=== PATIENT | female | born 1940 | race Two or more races ===

== ENCOUNTER 2025-02-07 14:09 | Inpatient (IN) | payer MEDICARE, BC, OTHER ==
[~2025-02-07] VITALS: Ht 160 cm; Wt 54.4 kg
[2025-02-07] MEDS: CEFEPIME 1 GM in IV D5W 50 ML IV ONE (14:15)
[2025-02-07 14:57] LABS: BASOPHILS % (AUTO) 0.2 % (0.0-2.0); EOSINOPHILS # (AUTO) 0.1 K/uL (0.0-0.7); EOSINOPHILS % (AUTO) 0.6 % (0.0-6.0); HEMATOCRIT 31 % (33-45); HEMOGLOBIN 10.5 g/dL (11.5-14.8); LYMPHOCYTES # (AUTO) 0.8 K/uL (0.8-4.8); LYMPHOCYTES % (AUTO) 8.6 % (20.0-44.0); MEAN CORPUSCULAR HEMOGLOBIN 30 PG (26.0-33.0); MEAN CORPUSCULAR HGB CONC 34 g/dl (31.0-36.0); MEAN CORPUSCULAR VOLUME 89 fL (82-100); MONOCYTES # (AUTO) 1.1 K/uL (0.1-1.30); MONOCYTES % (AUTO) 11.2 % (2.0-12.0); NEUTROPHILS # (AUTO) 7.7 K/uL (1.8-8.9); NEUTROPHILS % (AUTO) 79.4 % (43.0-81.0); PLATELET COUNT (AUTO) 200 K/uL (150-450); RED BLOOD CELL COUNT(AUTO) 3.47 MIL/uL (4.0-5.2); RED CELL DISTRIBUTION WIDTH 13.6 % (11.5-15.0); WHITE BLOOD COUNT (AUTO) 9.7 K/uL (4.3-11.0)
[2025-02-07 15:05] LABS: CALCIUM, SERUM 9.1 mg/dL (8.5-10.1); CARBON DIOXIDE 29 mmol/L (21-32); CHLORIDE 102 mmol/L (98-107); CREATININE 1.1 mg/dL (0.6-1.3); GLUCOSE 170 mg/dL (74-106); POTASSIUM 3.8 mmol/L (3.5-5.1); SERUM AMMONIA 4 umol/L (11-32); SODIUM SERUM 140 mmol/L (136-145); UREA NITROGEN, BLOOD 31 mg/dL (7-18)
[2025-02-07 15:12] LABS: ALANINE AMINOTRANSFERASE 13 U/L (12-78); ALKALINE PHOSPHATASE 73 U/L (46-116); ASPARTATE AMINOTRANSFERASE 12 U/L (15-37); BILIRUBIN,DIRECT 0.1 mg/dL (0.0-0.2); BILIRUBIN,TOTAL 0.4 mg/dL (0.2-1.0); TOTAL PROTEIN, SERUM 6.9 g/dL (6.4-8.2)
[2025-02-07 15:14] LABS: ACETAMINOPHEN <10 ug/ml (10-30); ALCOHOL, BLOOD < 3 mg/dL (0-10); SALICYLATE < 2.8 mg/dL (2.8-20.0)
[2025-02-07] MEDS ORDERED: ACET325T53 PO (15:20)
[2025-02-07] MEDS ORDERED: CARV6.252 PO (15:20)
[2025-02-07] MEDS ORDERED: MAG30ORA PO (15:20)
[2025-02-07] MEDS ORDERED: OLAN5TAB3 PO (15:20)
[2025-02-07] MEDS ORDERED: MAGN400O6 PO (15:20)
[2025-02-07] MEDS ORDERED: CYANOCOBALAMIN PO (15:20)
[2025-02-07] MEDS ORDERED: MULT-754 PO (15:20)
[2025-02-07] MEDS ORDERED: ASPI-1420 PO (15:20)
[2025-02-07] MEDS ORDERED: BISA10SU11 RC (15:20)
[2025-02-07] MEDS ORDERED: TEMA15CA PO (15:20)
[2025-02-07] MEDS ORDERED: ROSU20TA32 PO (15:20)
[2025-02-07] MEDS ORDERED: NA P133E RC (15:20)
[2025-02-07] MEDS ORDERED: LORA-258 PO (15:20)
[2025-02-07] MEDS ORDERED: DOCU250C14 PO (15:20)
[2025-02-07] MEDS ORDERED: TOBR5DRO36 EACHEYE (15:20)
[2025-02-07] MEDS ORDERED: ESCI10TA PO (15:20)
[2025-02-07] MEDS ORDERED: MEMA5TAB PO (15:20)
[2025-02-07] MEDS ORDERED: LEVO25TA9 PO (15:20)
[2025-02-07] MEDS ORDERED: FLUORESCEIN SODIUM OPHTH 1 EA STRIP ONE (15:40)
[2025-02-07] MEDS ORDERED: TETRAcaine 5 ML BOTTLE ONE (15:40)
[2025-02-07] MEDS: VANCOMYCIN 1 GM in IV D5W 250 ML IV ONE (16:00)
[2025-02-07] MEDS: TETRAcaine 5 ML BOTTLE EACHEYE ONE (16:12)
[2025-02-07] MEDS: FLUORESCEIN SODIUM OPHTH 1 EA STRIP OP ONE (16:12)
[2025-02-07 17:03] LABS: APPEARANCE,URINE CLEAR (CLEAR); BILIRUBIN,URINE NEGATIVE (NEGATIVE); BLOOD, URINE 2+ Ery/uL (NEGATIVE); COLOR,URINE YELLOW (YELLOW); KETONES,URINE 1+ mg/dL (NEGATIVE); LEUKOCYTE ESTERASE ,URINE TRACE (NEGATIVE); NITRITE, URINE NEGATIVE (NEGATIVE); PH,URINE 5.5 (5.0-8.0); PROTEIN,URINE TRACE mg/dl (NEGATIVE); UGLUCOSE NEGATIVE (NEGATIVE)
[2025-02-07 17:22] LABS: AMPHETAMINE, URINE NEGATIVE (NEGATIVE); BARBITURATE, URINE NEGATIVE (NEGATIVE); BENZODIAZEPINE, URINE NEGATIVE (NEGATIVE); CANNABINOID, URINE NEGATIVE (NEGATIVE); COCCAINE, URINE NEGATIVE (NEGATIVE); OPIATE, URINE NEGATIVE (NEGATIVE); PHENCYCLIDINE SCREEN,URINE NEGATIVE (NEGATIVE)
[2025-02-07 18:01] VITALS: BP 117/50; TEMP 98.1; O2SAT 97
[2025-02-07 18:14] LABS: SQUAMOUS EPITHELIAL CELL,UR Few /HPF (None Seen)
[2025-02-07 18:15] LABS: ADD URINE CULTURE YES; BACTERIA,URINE Moderate /HPF (None Seen)
[2025-02-07] MEDS ORDERED: ACETAMINOPHEN 325 MG TABLET PO PRN (19:00)
[2025-02-07] MEDS ORDERED: MAG HYDROX/AL HYDROX/SIMETH 30 ML UDC PO PRN (19:00)
[2025-02-07] MEDS ORDERED: MAGNESIUM HYDROXIDE 30 ML UDC PO PRN (19:00)
[2025-02-07] MEDS ORDERED: Z GUARD REMEDY 4 OZ OINT TP PRN (19:00)
[2025-02-07] MEDS ORDERED: ONDANSETRON HCL/PF 4 MG/2 ML VIAL IVP PRN (19:00)
[2025-02-07] MEDS ORDERED: NEOMY SULF/BACITRA/POLYMYXIN B 3.5 GM TUBE OP SCH (19:30)
[2025-02-07] MEDS ORDERED: BACI/NEOM/POLY B OINT PKT 1 UDPKT PACKET TP SCH (19:30)
[2025-02-07 20:00] VITALS: BP 125/67; TEMP 98.8; O2SAT 97
[2025-02-07] MEDS: LEVOFLOXACIN (250MG) 250 MG TABLET PO SCH (20:42)
[2025-02-07] MEDS: ENOXAPARIN SODIUM 40 MG/0.4 ML DISP.SYRIN SQ SCH (20:43)
[2025-02-07] MEDS: IV NS 0.9% 1,000 ML IV PRN (21:47)
[2025-02-08] VITALS: BP 106/66; TEMP 97.9; O2SAT 95
[2025-02-08] MEDS: NEOMY SULF/BACITRA/POLYMYXIN B 3.5 GM TUBE OP SCH (00:16)
[2025-02-08 04:00] VITALS: BP 105/67; TEMP 97.7; O2SAT 98
[2025-02-08 06:50] LABS: BASOPHILS % (AUTO) 0.4 % (0.0-2.0); EOSINOPHILS # (AUTO) 0.2 K/uL (0.0-0.7); EOSINOPHILS % (AUTO) 2.2 % (0.0-6.0); HEMATOCRIT 32 % (33-45); LYMPHOCYTES # (AUTO) 1.2 K/uL (0.8-4.8); LYMPHOCYTES % (AUTO) 16.6 % (20.0-44.0); MEAN CORPUSCULAR HEMOGLOBIN 31 PG (26.0-33.0); MEAN CORPUSCULAR HGB CONC 35 g/dl (31.0-36.0); MEAN CORPUSCULAR VOLUME 89 fL (82-100); MONOCYTES # (AUTO) 0.9 K/uL (0.1-1.30); MONOCYTES % (AUTO) 12.7 % (2.0-12.0); NEUTROPHILS # (AUTO) 4.9 K/uL (1.8-8.9); NEUTROPHILS % (AUTO) 68.1 % (43.0-81.0); PLATELET COUNT (AUTO) 176 K/uL (150-450); RED BLOOD CELL COUNT(AUTO) 3.58 MIL/uL (4.0-5.2); WHITE BLOOD COUNT (AUTO) 7.1 K/uL (4.3-11.0)
[2025-02-08 07:39] LABS: CALCIUM, SERUM 9.1 mg/dL (8.5-10.1); CREATININE 0.8 mg/dL (0.6-1.3); MAGNESIUM 2.3 mg/dL (1.8-2.4); PHOSPHORUS 3.6 mg/dL (2.5-4.9); POTASSIUM 3.8 mmol/L (3.5-5.1)
[2025-02-08 08:00] VITALS: BP 122/66; TEMP 98.8; O2SAT 98
[2025-02-08] MEDS: PANTOPRAZOLE 40 MG TABLET.DR PO SCH (08:11)
[2025-02-08 16:00] VITALS: BP 126/57; TEMP 98.1; O2SAT 97
[2025-02-08 20:46] VITALS: BP 136/74; TEMP 99.7; O2SAT 96
[2025-02-08] MEDS: ZOLPIDEM TARTRATE 5 MG TABLET PO PRN (21:53)
[2025-02-09 05:20] VITALS: BP 131/67; TEMP 99; O2SAT 96
[2025-02-09 08:52] VITALS: BP 112/66; TEMP 98; O2SAT 98
[2025-02-09] MEDS: LORAZEPAM 0.5 MG TABLET PO PRN (13:15)
[2025-02-09 16:00] VITALS: BP 112/66; TEMP 98; O2SAT 97
[2025-02-09 20:00] VITALS: BP 118/79; TEMP 98.2; O2SAT 97
[2025-02-10 04:00] VITALS: BP 111/66; TEMP 97.7; O2SAT 95
[2025-02-10 08:00] VITALS: BP 124/72; TEMP 97.8; O2SAT 97
== END 2025-02-10 15:56 | DRG 193 ==
LOC: ER 14:15 → MEDSG1 18:50 → TELE1 19:28 → MEDSG1 02-08 10:02
DX: J15.9 Unspecified bacterial pneumonia (principal); G93.41 Metabolic encephalopathy; N39.0 Urinary tract infection, site not specified; E03.9 Hypothyroidism, unspecified; F03.90 Unspecified dementia, unspecified severity, without behavioral disturbance, psychotic disturbance, mood disturbance, and anxiety; H10.89 Other conjunctivitis; H10.32 Unspecified acute conjunctivitis, left eye; I10 Essential (primary) hypertension; E78.5 Hyperlipidemia, unspecified; S09.90XA Unspecified injury of head, initial encounter; W19.XXXA Unspecified fall, initial encounter; Y92.9 Unspecified place or not applicable; Z79.899 Other long term (current) drug therapy; Z88.0 Allergy status to penicillin; F32.9 Major depressive disorder, single episode, unspecified; Z88.4 Allergy status to anesthetic agent; Z79.82 Long term (current) use of aspirin; Z79.890 Hormone replacement therapy; R79.89 Other specified abnormal findings of blood chemistry
CPT/HCPCS: 36415; 70450-TC; 70486-TC; 71045-TC; 71250-TC; 72125-TC; 80048-TC; 80076-TC; 81001; 82140-TC; 83605-TC; 83735-TC; 84100-TC; 84443-TC; 85025-TC; 87040-TC; 87081-TC; 97110-TC; 97116-TC; 97530-TC; A4223; G0378; G0480; J0692; J1650; J3370; J3490; J7030; J7060